=== PATIENT | male | born 1945 | race Caucasian/White ===

== ENCOUNTER → 2017-08-25 15:18 | Outpatient (CLI) | payer MEDICARE, OTHER, SELFPAY ==
[2017-08-25 15:54] LABS: Add Manual Diff / Slide Review NO; Basophils Percent Auto 0.4 % (0-2); Hematocrit 40.8 % (41-53); Hemoglobin 14.1 g/dL (13.5-17.5); Lymphocytes Percent Auto 25.8 % (25-40); Mean Corpuscular HGB Conc 34.6 % (30-36); Mean Corpuscular Hemoglobin 29.6 PG (26-34); Mean Corpuscular Volume 85.6 fL (80-100); Monocytes Percent Auto 11.4 % (3-14); Neutrophils Absolute Auto 5300 /uL (3000-5900); Neutrophils Percent Auto 59.4 % (50-75); Platelet Count 162 X10^3/uL (150-400); Red Blood Cell Count 4.77 X10^6/uL (4.5-5.9); Red Cell Distribution Width 13.8 % (11.6-14.8); White Blood Cell Count 8.9 X10^3/uL (4.5-11.0)
== END ==
PROVIDERS: Family Provider Family Medicine; PCP Family Medicine; Visit Provider Family Medicine
DX: R05 Cough (principal); J44.9 Chronic obstructive pulmonary disease, unspecified
CPT/HCPCS: 36415; 85025

== ENCOUNTER → 2017-08-28 13:40 | Outpatient (CLI) | payer MEDICARE, OTHER, SELFPAY ==
--- NOTE | 2017-08-28 | DI.CT.S_ITS ---
PROCEDURE: CT CHEST W CON INDICATIONS: CHRONIC COUGH SHORTNESS OF BREATH TECHNIQUE: After the administration of intravenous contrast, 5 mm thick sections acquired from the pulmonary apices to the posterior costophrenic angles. 7 mm thick coronal and sagittal MIP reformats were acquired. For radiation dose reduction, the following was used: automated exposure control, adjustment of mA and/or kV according to patient size. COMPARISON: [facility], CHEST 2 VIEW, 07/14/2016, 14:35. [facility], CHEST 2 VIEW, 03/31/2017, 15:33. FINDINGS: Image quality: Excellent. Lungs and pleura: There is peripherally accentuated, lower lobe accentuated honeycomb appearance of the lung that by plain films comparisons has increased in severity. No dominant consolidation is seen to suggest mass lesion or active inflammatory disease. Mediastinum: Heart size is normal. No pericardial effusion. There is mediastinal and hilar adenopathy measuring up to 15 mm in short diameter. Thoracic aorta and central pulmonary arteries are normal in size. Esophagus is normal in caliber. No hiatal hernia. Bones and chest wall: No suspicious bony lesions. No vertebral body compression fractures. No axillary or supraclavicular adenopathy by size criteria. Thyroid gland appears normal. Abdomen: Visualized upper abdominal solid organs appear normal. Upper abdominal bowel loops are normal in caliber. IMPRESSION: 1. Findings in the lung are consistent with progressive idiopathic pulmonary fibrosis. 2. Mild mediastinal and hilar lymphadenopathy is nonspecific, likely reactive but possibility of malignancy cannot be excluded. Dictated by: Gonzalo Lorenz M.D. on 08/28/2017 at 15:48 Approved by: Gonzalo Lorenz M.D. on 08/28/2017 at 15:56
[2017-08-28 15:02] LABS: Alanine Aminotransferase 27 IU/L (21-72); Albumin Globulin Ratio 1.2 (1.0-2.8); Alkaline Phosphatase 96 U/L (38-126); Aspartate Aminotransferase 24 IU/L (17-59); BUN Creatinine Ratio 13.3 (6-22); Bilirubin Total 0.4 mg/dL (0.2-1.3); Calcium 9.2 mg/dL (8.4-10.2); Estimated Glomerular Filt Rate > 60.0 mL/min (>60); Globulin 3.4 g/dL (1.7-4.1); Glucose 84 mg/dL (80-110); HEMOLYSIS < 15 (0-50); Potassium 4.3 mmol/L (3.4-5.1); Sodium 140 mmol/L (137-145); Total Protein 7.4 g/dL (6.3-8.2)
== END ==
PROVIDERS: Family Provider Family Medicine; PCP Family Medicine; Visit Provider Family Medicine
DX: R05 Cough (principal); R06.02 Shortness of breath; R59.0 Localized enlarged lymph nodes
CPT/HCPCS: 36415; 71260; 80053; Q9967

== ENCOUNTER → 2018-03-05 09:00 | Outpatient (CLI) | payer MEDICARE, OTHER, SELFPAY ==
--- NOTE | 2018-03-09 08:47 | PM.PFT.1 ---
Pulmonary Function Test Referral & Results Date Patient Seen: 03/05/18 Requesting provider: Tanya Garcia Indication: Shortness of breath Results: The spirometry demonstrates an FVC of 2.75 L which is 67% of predicted. The FEV1 was measured at 2.46 L which is 82% of predicted. The FEV1/FVC ratio was 90 which is 122% of predicted. Following the administration of bronchodilator there was no appreciable change. Lung volumes show an SVC of 2.79 L which is 65% of predicted. The diffusing capacity was measured at 9.83 which is 33% of predicted. No hemoglobin value was provided, so no correction for potential anemia could be made, if appropriate. The maximum voluntary ventilation was normal Interpretation: Patient with reduced lung volumes increased FEV1/FVC ratio and a significant defect in the capillary alveolar level altogether suggest interstitial lung disease As above there is significant obstructive lung disease and restrictive lung disease both present based on reduced FEV1 and SVC. Clinical correlation suggested
== END ==
PROVIDERS: Family Provider Family Medicine; PCP Family Medicine; Visit Provider Internal Medicine Critical Care Medicine
DX: R06.02 Shortness of breath (principal)
CPT/HCPCS: 94060; 94726; 94729

== ENCOUNTER → 2018-09-08 16:49 | Outpatient (CLI) | payer MEDICARE, OTHER, SELFPAY ==
--- NOTE | 2018-09-10 16:45 | PM.PFT.1 ---
Pulmonary Function Test Referral & Results Date Patient Seen: 09/08/18 Requesting provider: Tanya Garcia Results: The spirometry demonstrates an FVC of 3.23 L which is 79% of predicted. The FEV1 was measured at 2.83 L which is 95% of predicted. The FEV1/FVC ratio was 88 which is 120% of predicted. Following the administration of bronchodilator there was no appreciable change to above numbers. Lung volumes show an SVC of 2.92 L which is 60% of predicted. The diffusing capacity was measured at 11.57 which is 39% of predicted. No hemoglobin value was provided, so no correction for potential anemia could be made, if appropriate. The maximum voluntary ventilation was normal Interpretation: This study demonstrates reduced lung volumes but normal FEV1. There is also a significant reduction in diffusing capacity. Altogether this is consistent with a diagnosis of some sort of pulmonary fibrosis
== END ==
PROVIDERS: Family Provider Family Medicine; PCP Family Medicine; Visit Provider Internal Medicine Critical Care Medicine
DX: R06.02 Shortness of breath (principal)
CPT/HCPCS: 94060; 94726; 94729

== ENCOUNTER → 2018-09-28 13:00 | Outpatient (CLI) | payer MEDICARE, OTHER, SELFPAY ==
--- NOTE | 2018-09-28 | DI.CT.S_ITS ---
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 Short of breath TECHNIQUE: Noncontrast 5 mm thick sections acquired from the pulmonary apices to the posterior costophrenic angles. 7 mm thick coronal and sagittal MIP reformats were then acquired. For radiation dose reduction, the following was used: automated exposure control, adjustment of mA and/or kV according to patient size. COMPARISON: [facility], CT, CT CHEST W [facility], 08/28/2017, 15:07. FINDINGS: Image quality: Diagnostic. Lungs and pleura: Aeration of the lungs is similar to the previous examination with subpleural areas of interstitial thickening without significant consolidation. There also are moderate areas of honeycombing identified diffusely throughout the bilateral lower lobes. The degree of honeycombing is slightly more prominent on the current study, compared to the previous exam. No new areas of consolidation are evident. There is no pleural effusion or pneumothorax. No lung masses or definite pulmonary nodules are present. Mediastinum: Heart size is normal. No pericardial effusion. No mediastinal adenopathy by size criteria. Thoracic aorta and central pulmonary arteries are normal in size. Esophagus is normal in caliber. No hiatal hernia. Bones and chest wall: No suspicious bony lesions. No vertebral body compression fractures. No axillary or supraclavicular adenopathy by size criteria. Thyroid gland is not enlarged or adequately evaluated. Abdomen: Visualized upper abdominal solid organs and bowel loops appear normal in the absence of contrast. IMPRESSION: 1. No acute cardiopulmonary process is evident. 2. Extensive chronic interstitial changes of the lungs with associated posterior costophrenic angle honeycombing is most suggestive of idiopathic pulmonary fibrosis, which is more prominent on the current study, compared to the previous exam. 3. No lung masses or definite pulmonary nodules. Dictated by: David Paz M.D. on 09/28/2018 at 16:08 Approved by: David Paz M.D. on 09/28/2018 at 16:11
--- NOTE | 2018-09-28 | DI.ECHO.S_ITS ---
[place] [facility]---------+ [facility] +---------+ : : [address] : : : : [id number] : : : : Phone: [phone]+ Echocardiogram Report + + :Name: RUIZ MCCARTY Study Date: 09/28/2018 Height: 68 in : :[facility] Exam Location: [place] Weight: 215 lb : : Gender: Male BSA: 2.1 m2 : :: 1945 Age: 73 yrs BP: 105/75 mmHg: :Reason For Study: Rheumatoid lung disease : :Ordering Physician: Tanya : :Parimi Performed By: Elyssa Page : + + Interpretation Summary The left ventricle is normal in size, wall thickness, and systolic function without any focal wall motion abnormalities. The ejection fraction is estimated to be 60-65%. Diastolic parameters suggest a relaxation abnormality of the left ventricle, consistent with probable normal filling pressures. The right ventricle is normal in size and function. The right ventricular systolic pressure is estimated to be at least 30 mmHg based on an estimated right atrial pressure of 3 mm Hg. The left atrium is mildly dilated. Right atrial size is normal. There is no significant valvular heart disease. The aortic root is mildly dilated. The ascending aorta is mildly enlarged. Procedure: A two-dimensional transthoracic echocardiogram with color flow and Doppler was performed. The study quality was technically adequate. There is no prior echocardiogram noted for this patient. The heart rate ranged between 56-87 bpm during the study. Left Ventricle: The left ventricle is normal in size, wall thickness, and systolic function without any focal wall motion abnormalities. The ejection fraction is estimated to be 60-65%. Diastolic parameters suggest a relaxation abnormality of the left ventricle, consistent with probable normal filling pressures. Right Ventricle: The right ventricle is normal in size and function. Atria: The left atrium is mildly dilated. Right atrial size is normal. There is no Doppler evidence for an interatrial shunt. Mitral Valve: The mitral valve leaflets appear mildly thickened, but open well. There is mild mitral annular calcification. There is trace mitral regurgitation. Aortic Valve: The aortic valve is trileaflet. The aortic valve opens well. The aortic valve is slightly calcified. There is trace aortic regurgitation. Tricuspid Valve: The tricuspid valve is normal in structure and function. There is trace tricuspid regurgitation. The right ventricular systolic pressure is estimated to be at least 30 mmHg based on an estimated right atrial pressure of 3 mm Hg. Pulmonic Valve: The pulmonic valve is not well visualized. There is trace pulmonic regurgitation. There is no significant valvular heart disease. Great Vessels: The aortic root is mildly dilated. The ascending aorta is mildly enlarged. The aortic arch is at the upper limits of normal in size. The pulmonary artery is not well visualized, but is probably normal size. The IVC is of normal diameter and collapses greater than 50% with a sniff. This suggests a low right atrial pressure of 3 mm Hg. Pericardium/ Pleura There is no pericardial effusion. There is no pleural effusion. MMode/2D Measurements & Calculations LVIDd: 4.8 cm LVOT diam: 2.5 cm LVIDs: 2.7 cm Ao root diam: 4.1 cm FS: 43.6 % asc Aorta Diam: 3.9 cm EPSS: 0.26 cm Ao Arch Diam (Prox Trans): 3.2 cm IVSd: 1.0 cm LVPWd: 0.82 cm LV [place]. diameter/BSA (cm/m^2): 2.3 LV sys. diameter/BSA (cm/m^2): 1.3 LA A2 area: 23.9 cm2 RA long axis: 5.9 cm LA A4 area: 23.0 cm2 RA area: 16.4 cm2 LA length (vol): 5.6 cm RA vol: 38.8 ml LA vol: 83.3 ml RA : 18.4 ml/m2 LA vol index: 39.5 ml/m2 IVC diam: 0.96 cm RVD1 (basal): 4.1 cm RVD2 (mid): 4.0 cm TAPSE: 2.1 cm Doppler Measurements & Calculations Ao V2 max: 122.4 cm/sec LVOT Max Jacob: 74.5 cm/sec Ao V2 mean: 87.2 cm/sec LV V1 max P.2 mmHg Ao max P.0 mmHg LV V1 VTI: 15.3 cm Ao mean P.3 mmHg RADHA(I,D): 3.1 cm2 Ao V2 VTI: 23.7 cm RADHA(V,D): 2.9 cm2 sev ratio: 0.65 RADHA indexed to BSA (cm^2/m^2): 1.5 MV E max jacob: 51.4 cm/sec TR max jacob: 258.8 cm/sec MV A max jacob: 68.6 cm/sec TR max P.8 mmHg MV E/A: 0.75 PA V2 max: 57.3 cm/sec Med Peak E' Jacob: 6.2 cm/sec PA V2 mean: 43.0 cm/sec E/E' med: 8.3 PA mean P.80 mmHg Lat Peak E' Jacob: 10.0 cm/sec PA Accel Time: 0.08 sec E/E' lat: 5.1 E/e' average: 6.7 MV dec time: 0.21 sec MV P1/2t: 62.7 msec MV P1/2t max jacob: 52.6 cm/sec SV(LVOT): 73.2 ml MVA(P1/2t): 3.5 cm2 Reading Physician:02:43 PM
== END ==
PROVIDERS: Family Provider Family Medicine; PCP Family Medicine; Visit Provider Internal Medicine Critical Care Medicine
DX: M05.10 Rheumatoid lung disease with rheumatoid arthritis of unspecified site (principal); R06.02 Shortness of breath; I77.89 Other specified disorders of arteries and arterioles
CPT/HCPCS: 71250; 93306

== ENCOUNTER → 2018-12-24 14:49 | Outpatient (CLI) | payer MEDICARE, OTHER, SELFPAY ==
--- NOTE | 2019-01-03 11:09 | PM.PFT.1 ---
Pulmonary Function Test Referral & Results Date Patient Seen: 12/24/18 Requesting provider: Tanya Garcia Results: The spirometry demonstrates an FVC of 2.85 L which is 70% of predicted. The FEV1 was measured at 2.56 L which is 87% of predicted. The FEV1/FVC ratio was 90 which is 123% of predicted. Following the administration of bronchodilator there was no appreciable change. Lung volumes show an SVC of 2.90 L which is 68% of predicted. The diffusing capacity was measured at 12.48 which is 42% of predicted. No hemoglobin value was provided, so no correction for potential anemia could be made, if appropriate. The maximum voluntary ventilation was normal Interpretation: This study demonstrates moderately severe restrictive lung disease as well as a more significant decline in diffusing capacity suggesting more significant disease at the capillary alveolar level This is consistent with a diagnosis of something such as interstitial fibrosis etc Compared to PFTs performed in September 2018, current study is essentially unchanged
== END ==
PROVIDERS: PCP Student in an Organized Health Care Education/Training Program; Visit Provider Internal Medicine Critical Care Medicine
DX: R06.02 Shortness of breath (principal)
CPT/HCPCS: 94060; 94726; 94729

== ENCOUNTER → 2019-08-23 11:49 | Outpatient (CLI) | payer MEDICARE, OTHER, SELFPAY ==
[2019-08-24 15:12] LABS: COVID19 Sendout NOT DETECTED
== END ==
PROVIDERS: PCP Student in an Organized Health Care Education/Training Program; Visit Provider Physician Assistant
DX: Z01.818 Encounter for other preprocedural examination (principal)
CPT/HCPCS: 87635

== ENCOUNTER → 2019-08-26 13:16 | Outpatient (CLI) | payer MEDICARE, OTHER, SELFPAY ==
--- NOTE | 2019-09-01 09:03 | PM.PFT.1 ---
Pulmonary Function Test Referral & Results Date Patient Seen: 08/26/19 Requesting provider: Lara Ramos Results: The spirometry demonstrates an FVC of 2.63 L which is 65% of predicted. The FEV1 was measured at 2.32 L which is 79% of predicted. The FEV1/FVC ratio was 88 which is 120% of predicted. Following the administration of bronchodilator there was no appreciable change. Lung volumes show an SVC of 2.71 L which is 63% of predicted. The diffusing capacity was measured at 12.14 which is 40% of predicted. No hemoglobin value was provided, so no correction for potential anemia could be made, if appropriate. The maximum voluntary ventilation was normal Interpretation: This study demonstrates mild obstructive lung disease based on slight reduction in FEV1 without evidence of benefit following bronchodilator administration There is more significant reduction in lung volume specifically SVC suggesting more significant restrictive lung disease is also present There is a moderately severe reduction in diffusing capacity suggesting significant disease at the capillary alveolar level Clinical correlation suggested, but this is consistent with a diagnosis of COPD
== END ==
PROVIDERS: PCP Family Medicine; Referring Provider Specialist; Visit Provider Specialist
DX: R06.02 Shortness of breath (principal); J84.9 Interstitial pulmonary disease, unspecified; R06.09 Other forms of dyspnea; M05.10 Rheumatoid lung disease with rheumatoid arthritis of unspecified site; J96.91 Respiratory failure, unspecified with hypoxia; J84.112 Idiopathic pulmonary fibrosis
CPT/HCPCS: 94060; 94726; 94729